=== PATIENT | female | born 1955 | race Caucasian/White ===

== ENCOUNTER 2022-09-13 17:31 | Emergency (ER) | payer MEDICARE ==
[~2022-09-13] VITALS: Ht 165.1 cm; Wt 101.8 kg
[~2022-09-13 17:31] MED LIST: CELEXA20 MG PO; DILAUDID2 MG PO; NORCO 7.5-3251 EACH PO; PROAIR HFA8.5 GM INH; ROBITUSSIN NIG118 ML PO; SYNTHROID125 MCG PO
[2022-09-13] MEDS ORDERED: LEVOTHYROXINE112 MCG PO (18:07)
[2022-09-13] MEDS ORDERED: CITALOPRAM HBR20 MG PO (18:08)
[2022-09-13] MEDS ORDERED: ULTRAM50 MG PO (21:16)
== END 2022-09-13 21:34 | disposition home or self-care (01) ==
LOC: ED 17:31
DX: S20.211A Contusion of right front wall of thorax, initial encounter (principal); W19.XXXA Unspecified fall, initial encounter; E78.00 Pure hypercholesterolemia, unspecified; J45.909 Unspecified asthma, uncomplicated; K21.9 Gastro-esophageal reflux disease without esophagitis; Z88.0 Allergy status to penicillin; Z88.2 Allergy status to sulfonamides; Z88.8 Allergy status to other drugs, medicaments and biological substances; Z91.040 Latex allergy status; Z79.899 Other long term (current) drug therapy
CPT/HCPCS: 71250; 99283-25; A9270

== ENCOUNTER 2023-02-16 09:19 | Emergency (ER) | payer MEDICARE, OTHER ==
[~2023-02-16] VITALS: Ht 165.1 cm; Wt 101.8 kg
[~2023-02-16 09:19] MED LIST changes: +CITALOPRAM HBR20 MG PO; +LEVOTHYROXINE112 MCG PO; +ULTRAM50 MG PO
[2023-02-16] MEDS ORDERED: ZITHROMAX250 MG PO (11:58)
[2023-02-16] MEDS ORDERED: VENTOLIN HFA18 GM INH (11:58)
[2023-02-16] MEDS ORDERED: PREDNISONE20 MG PO (11:58)
== END 2023-02-16 12:10 | disposition home or self-care (01) ==
LOC: ED 09:19
DX: J45.901 Unspecified asthma with (acute) exacerbation (principal); E78.00 Pure hypercholesterolemia, unspecified; J45.909 Unspecified asthma, uncomplicated; K21.9 Gastro-esophageal reflux disease without esophagitis; Z88.0 Allergy status to penicillin; Z91.040 Latex allergy status; Z88.2 Allergy status to sulfonamides; Z88.8 Allergy status to other drugs, medicaments and biological substances; Z79.899 Other long term (current) drug therapy
CPT/HCPCS: 71046; 94640; 99283-25; A9270; J7512

== ENCOUNTER 2024-09-13 22:04 | Emergency (ER) | payer MEDICARE, OTHER ==
[~2024-09-13] VITALS: Ht 165.1 cm; Wt 105.0 kg
[~2024-09-13 22:04] MED LIST changes: +PREDNISONE20 MG PO; +VENTOLIN HFA18 GM INH; +ZITHROMAX250 MG PO
[2024-09-13 22:43] LABS: BASOPHILS 0.2 % (0-2); EOSINOPHILS 0.6 % (0-6); HEMATOCRIT 39.9 % (35.0-50.0); HEMOGLOBIN 13.5 g/dL (12.0-18.0); LYMPHOCYTES 16.9 % (24-44); MCH 29.8 (27-36); MCHC 33.8 g/dl (30-36); MCV 88.3 fl (81-99); MONOCYTES 3.4 % (0-12); NEUTROPHILS 78.9 % (39-80); PLATELET COUNT 318 K/uL (140-440); RBC 4.52 M/ul (4.3-5.7); RDW 13.4 (10.5-15.0)
[2024-09-13] MEDS ORDERED: ondansetron HCL 4 MG/2 ML VIAL IV ONE (23:00)
[2024-09-13 23:01] LABS: ALBUMIN 4.1 g/dL (3.4-5.0); ANION GAP 10.7 (7-21); BILIRUBIN, TOTAL 0.3 ng/dL (0.2-1.0); BUN/CREATININE RATIO 22.5 (6.0-28.6); CALCIUM 9.4 mg/dL (8.5-10.1); CREATININE, SERUM 0.8 mg/dL (0.55-1.02); POTASSIUM 3.7 mmol/L (3.5-5.1); PROTEIN, TOTAL 8.2 g/dL (6.4-8.2)
[2024-09-13] MEDS ORDERED: MORPHINE SULFATE 4 MG/ML VIAL IV ONE (23:45)
[2024-09-13] MEDS ORDERED: LACTATED RINGER'S 1,000 ML IV ONE (23:45)
[2024-09-14] MEDS ORDERED: LOMOTIL TABLET1 EACH PO (01:06)
[2024-09-14] MEDS ORDERED: ONDANSETRON ODT4 MG PO (01:06)
[2024-09-14] MEDS ORDERED: DIPHENOXYLATE/ATROPINE 1 EA TAB PO ONE (01:15)
[2024-09-14 01:28] VITALS: BP 139/63
[2024-09-14] MEDS ORDERED: ONDANSETRON 4 MG HOME.PACK SL ONE (01:30)
[2024-09-14 01:31] LABS: INFLUENZA B NAA NEGATIVE (NEGATIVE); RESPIRATORY SYNCYTIAL VIR NAA NEGATIVE (NEGATIVE)
[2024-09-14 01:57] LABS: BILIRUBIN, URINE NEGATIVE (negative); BLOOD/HGB, URINE NEGATIVE (Negative); KETONE, URINE NEGATIVE (Negative); LEUK ESTERASE, URINE NEGATIVE (negative); NITRITE, URINE NEGATIVE (negative); PH, URINE 5.5 (5-7)
== END 2024-09-14 01:29 | disposition home or self-care (01) ==
LOC: ED 22:04
PROVIDERS: Family Medicine
DX: K52.9 Noninfective gastroenteritis and colitis, unspecified (principal); J45.909 Unspecified asthma, uncomplicated; Z88.0 Allergy status to penicillin; Z88.2 Allergy status to sulfonamides; Z88.8 Allergy status to other drugs, medicaments and biological substances; Z91.040 Latex allergy status; Z79.899 Other long term (current) drug therapy; Z79.890 Hormone replacement therapy
CPT/HCPCS: 36415; 74177; 80053; 81003; 83690; 85025; 87502; 96375; 99284-25; A9270; J2270; J2405; J7121; Q9967; U0002